=== PATIENT | female | born 1970 | race African-American/Black ===

== ENCOUNTER 2022-09-19 22:47 | Emergency (ER) | payer MEDICAID ==
[~2022-09-19] VITALS: Ht 165.1 cm; Wt 72.7 kg
[2022-09-19 23:30] VITALS: BP 141/89
[2022-09-20 00:26] LABS: GLUCOMETER DEV NAME(LOC) ER.6; GLUCOSE,POINT OF CARE 331 MG/DL (70-110)
== END 2022-09-20 03:29 | disposition home or self-care (01) ==
LOC: EMS 22:49
DX: E11.40 Type 2 diabetes mellitus with diabetic neuropathy, unspecified (principal); I10 Essential (primary) hypertension; Z91.010 Allergy to peanuts; Z91.012 Allergy to eggs
CPT/HCPCS: 82948; 82962; 99282